=== PATIENT | male | born 1960 | race Caucasian/White ===

== ENCOUNTER 2017-04-20 16:19 | Outpatient (CLI) | payer MEDICARE ==
--- NOTE | 2017-04-20 17:11 | Diagnostic Imaging Report ---
Indication: History fracture, pain Technique: 3 views left foot Comparison: none Findings: Equivocal slight deformity of the second proximal phalanx, with some cortical irregularity medially. There may be some chronic erosive changes of the medial base. No definite acute fracture. No dislocations. Joint spaces are preserved. There is a plantar spur Impression: Chronic appearing changes as described. No definite acute bony trauma
== END 2017-04-20 18:19 | disposition home or self-care (01) ==
LOC: RAD 16:19
DX: M25.572 Pain in left ankle and joints of left foot (principal)

== ENCOUNTER 2019-03-29 13:43 | Outpatient (CLI) | payer MEDICARE ==
--- NOTE | 2019-03-29 14:45 | Diagnostic Imaging Report ---
Indication: Cough Technique: 2 views of the chest Comparison: 09/08/2015 Findings: No acute infiltrates or effusions. Normal cardiomediastinal silhouette. Wedge deformities of T12-L1 are again demonstrated. Findings are unchanged Impression: No acute process
== END 2019-03-29 15:43 | disposition home or self-care (01) ==
LOC: RAD 13:43
DX: R05 Cough (principal); R09.89 Other specified symptoms and signs involving the circulatory and respiratory systems
CPT/HCPCS: 71046